=== PATIENT | male | born 1940 | race Caucasian/White ===

== ENCOUNTER 2017-03-12 22:31 | Emergency (ER) | payer OTHER ==
[2017-03-12 22:54] VITALS: BP 179/82; PULSE 99; TEMP 98.8; BMI 31.3
--- NOTE | 2017-03-12 23:24 | PDOC ---
History of Present Illness - General Chief Complaint: Urinary Problem Stated Complaint: URINARY RETENTION History Source: Patient - History of Present Illness Initial Comments: 03/12/17 23:39 Pt presents to the ED complaining of urinary retention that began at 2 pm today. Patient has a history of TURP and bladder stone removal last week--had a mayfield until two days ago. Patient had mild hematuria, but was able to pass urine without incident until 2 pm today. Presented to the ED complaining of urinary retention and abdominal pain. Past History - Past Medical History Allergies/Adverse Reactions: Allergies Allergy/AdvReac Type Severity Reaction Status Date / Time No Known Allergies Allergy Verified 11/01/11 18:38 Home Medications: Ambulatory Orders Amlodipine Besylate [Norvasc] 10 mg PO DAILY 11/01/11 Labetalol HCl [Normodyne -] 500 mg PO TID 11/01/11 Apixaban [Eliquis] 5 mg PO BID 03/12/17 Cholecalciferol (Vitamin D3) [Vitamin D3 -] 1,000 unit PO DAILY 03/12/17 Ferrous Sulfate [Slow Fe] 45 mg PO DAILY 03/12/17 Insulin Glargine,Hum.rec.anlog [Lantus Solostar PEN (NF)] 36 units SQ HS Losartan Potassium 50 mg PO DAILY 03/12/17 Potassium Chloride 10 meq PO Q2D 03/12/17 Terazosin HCl 2 mg PO HS 03/12/17 Cardiac Disorders: Yes (AFIB) Diabetes: Yes GI Disorders: Yes (IPMN, GI BLEED) Disorders: Yes (ELEVATED PSA) HTN: Yes Hypercholesterolemia: Yes Kidney Stones: Yes - Surgical History Abdominal Surgery: Yes (WHIPPLE) Cardiac Surgery: (HEART CATH) Cholecystectomy: Yes - Suicide/Smoking/Psychosocial Hx Smoking Status: No Smoking History: Never smoked Number of Cigarettes Smoked Daily: 0 *Physical Exam - Vital Signs Last Vital Signs Temp Pulse Resp BP Pulse Ox 98.8 F 99 H 20 179/82 95 03/12/17 22:35 03/12/17 22:35 03/12/17 22:35 03/12/17 22:35 03/12/17 22:35 - Physical Exam General Appearance: Yes: Nourished, Appropriately Dressed, Obese HEENT: positive: Normal ENT Inspection, Normal Voice Neck: positive: Supple Respiratory/Chest: positive: Lungs Clear, Normal Breath Sounds Cardiovascular: positive: Regular Rhythm, Regular Rate, S1, S2 Gastrointestinal/Abdominal: negative: Normal Bowel Sounds, Tender, Flat, Soft, Organomegaly, Pulsatile Mass, Increased Bowel Sounds, Decreased BS, Protuberent , Distended, Guarding, Rebound, Tenderness, Hernia, Mass, Hepatomegaly, Spleenomegaly, Other Extremity: positive: Normal Inspection Integumentary: positive: Normal Color, Dry, Warm Neurologic: positive: Fully Oriented, Alert, Normal Mood/Affect ED Treatment Course - LABORATORY CBC & Chemistry Diagram: 03/13/17 00:00 03/13/17 00:00 Medical Decision Making - Medical Decision Making 03/12/17 23:53 Pt presents to the ED complaining of urinary retention and abdominal pain. REsolved in the ED after mayfield placement. Will check labs to rule out renal injury and discharge home if negative. patient reports mild chronic renal insufficiency. 03/13/17 01:46 Labs are within normal limits. Will discharge home with leg bag and instructions to call urologist tomorrow AM for follow up. *DC/Admit/Observation/Transfer Diagnosis at time of Disposition: Retention of urine - Discharge Dispostion Disposition: HOME Condition at time of disposition: Good Admit: No - Patient Instructions Printed Discharge Instructions: DI for Urinary Retention in Men Additional Instructions: Call your urologist tomorrow for follow up. Return to the ED for fever, severe pain, if the urine stops draining in the bag.
[2017-03-13 00:55] LABS: MCH 29.6 pg (25.7-33.7); MCHC 33.7 g/dl (32.0-35.9); MEAN CELL VOLUME 87.9 fl (80-96); PLATELET COUNT 125 K/MM3 (134-434); RDW 13.4 % (11.9-15.9)
[2017-03-13 01:21] LABS: ALBUMIN 2.9 g/dl (3.4-5.0); ANION GAP 9 (8-16); BILIRUBIN,TOTAL 0.8 mg/dL (0.2-1.0); CALCIUM 7.9 mg/dL (8.5-10.1); CO2 27 mmol/L (21-32); CREATININE 1.3 mg/dL (0.7-1.3); GLUCOSE,RANDOM 178 mg/dL (74-106); SGOT/AST 27 U/L (15-37); TOT PROT 6.1 g/dl (6.4-8.2)
[2017-03-13 01:26] LABS: ALK PHOS 103 U/L (45-117); SGPT/ALT 36 U/L (12-78)
[2017-03-13 01:30] LABS: URINE APPEARANCE SLCLOUDY; URINE BILIRUBIN NEGATIVE (NEGATIVE); URINE BLOOD 3+ (NEGATIVE); URINE COLOR LTYELLOW; URINE GLUCOSE (UA) 2+ (NEGATIVE); URINE KETONE NEGATIVE (NEGATIVE); URINE NITRITE NEGATIVE (NEGATIVE); URINE UROBILINOGEN NEGATIVE mg/dL (0.2-1.0)
[2017-03-13 01:38] LABS: URINE PROTEIN 2+ (NEGATIVE)
[2017-03-13 01:42] LABS: URINE BACTERIA RARE /hpf (NONE SEEN); URINE RBC 983 /hpf (0-3)
[2017-03-13 06:40] LABS: PLATELET ESTIMATE ADEQUATE (NORMAL); TOTAL CELLS COUNTED 100
[2017-03-13 06:41] LABS: REACTIVE LYMPHOCYTES 3 % (0-80)
[2017-03-13 09:56] LABS: URINE LEUK ESTERASE Negative (NEGATIVE)
== END 2017-03-13 01:56 | disposition home or self-care (01) ==
LOC: FER 22:31
DX: R33.9 Retention of urine, unspecified (principal); I48.91 Unspecified atrial fibrillation; I10 Essential (primary) hypertension; E78.00 Pure hypercholesterolemia, unspecified; Z87.442 Personal history of urinary calculi
CPT/HCPCS: 36415; 80053; 81003; 81015; 85025; 99283-25

== ENCOUNTER 2017-03-27 02:19 | Emergency (ER) | payer OTHER ==
[2017-03-27 02:41] VITALS: BP 138/84; PULSE 77; TEMP 97.3; BMI 31.3
--- NOTE | 2017-03-27 02:55 | PDOC ---
History of Present Illness - General Chief Complaint: Blood Sugar Problem Stated Complaint: HYPOGLYCEMIA Time Seen by Provider: 03/27/17 02:46 History Source: Patient Exam Limitations: No Limitations - History of Present Illness Initial Comments: 03/27/17 02:51 This is a 77-year-old male who comes in post hypoglycemic episode. Patient said that he took his normal amount of Lantus insulin at 11 PM tonight. Patient said he took 36 units. Patient said this is his normal dosing normally takes it between 10 and 11 PM. Patient said that a 1 AM his found him passed out and called EMS. They found his sugar to be 40 gave him some dextrose and recommended that he come to the emergency room for evaluation. Her on arrival in the emergency room his sugar was 129. Immediately post the dextrose his sugar was 176. Otherwise patient denies any fevers, chills, nausea, vomiting, diarrhea, chest pain, shortness of breath or any other complaints. Patient is at his baseline mental status. Patient said that he had a procedure recently for removal of a stone from his ureter that was causing some hydronephrosis and blockage. Patient was discharged from the hospital 2 dys ago post the procedure. PAST MEDICAL HISTORY: no significant history PAST SURGICAL HISTORY: no significant history FAMILY HISTORY: no pertinant history SOCIAL HISTORY: Pt lives with family and is retired MEDICATIONS: reviewed ALLERGIES: As per nursing notes Review of Systems General: No fevers or chills, no weakness, no weight loss HEENT: No change in vision. No sore throat,. No ear pain CardioVascular: No chest pain or shortness of breath Respiratory:No cough, or wheezing. Gastrointestinal: no nausea, vomitting, diarrhea or constipation, No rectal bleeding Genitourinary: No dysuria, hematuria, or frequency Musculoskeletal: No joint or muscle pain or swelling Neurologic: No headache, vertigo, dizziness or loss of consciousness Psychiatric: nor depression Skin: No rashes or easy bruising Endocrine: no increased thirst or abnormal weight change Allergic: no skin or latex allergy All other systems reviewed and normal Exam: General: Well-nourished well-developed individual, no acute distress HEENT: Throat: Normal, tonsils normal, no erythema or exudate Neck: Supple, no meningeal signs, no lymphadenopathy Eyes::Pupils equal reactive and round, extraocular motion intact Chest: Nontender to palpation Cardiac: S1-S2 normal, regular rate and rhythm, no murmurs rubs or gallops Respiratory: Lungs clear to auscultation bilateral Abdomen: Soft, nondistended, normal bowel sounds, nontender to palpation diffusely Extremities: Warm, dry, no cyanosis, clubbing, or edema Skin: No rashes Neuro: Alert and oriented x3, nonfocal exam, grossly intact, normal gait Psych: Normal mood and affect repeat finger stick blood sugar was 176. Past History - Past Medical History Allergies/Adverse Reactions: Allergies Allergy/AdvReac Type Severity Reaction Status Date / Time No Known Allergies Allergy Verified 11/01/11 18:38 Home Medications: Ambulatory Orders Amlodipine Besylate [Norvasc] 10 mg PO DAILY 11/01/11 Labetalol HCl [Normodyne -] 500 mg PO TID 11/01/11 Apixaban [Eliquis] 5 mg PO BID 03/12/17 Cholecalciferol (Vitamin D3) [Vitamin D3 -] 1,000 unit PO DAILY 03/12/17 Ferrous Sulfate [Slow Fe] 45 mg PO DAILY 03/12/17 Insulin Glargine,Hum.rec.anlog [Lantus Solostar PEN (NF)] 36 units SQ HS Losartan Potassium 50 mg PO DAILY 03/12/17 Potassium Chloride 10 meq PO Q2D 03/12/17 Terazosin HCl 2 mg PO HS 03/12/17 Cardiac Disorders: Yes (AFIB) Diabetes: Yes GI Disorders: Yes (IPMN, GI BLEED) Disorders: Yes (ELEVATED PSA) HTN: Yes Hypercholesterolemia: Yes Kidney Stones: Yes - Surgical History Abdominal Surgery: Yes (WHIPPLE) Cardiac Surgery: (HEART CATH) Cholecystectomy: Yes - Suicide/Smoking/Psychosocial Hx Smoking Status: No Smoking History: Unknown if ever smoked Have you smoked in the past 12 months: No Number of Cigarettes Smoked Daily: 0 Information on smoking cessation initiated: No *Physical Exam - Vital Signs Last Vital Signs Temp Pulse Resp BP Pulse Ox 97.3 F L 77 16 138/84 95 03/27/17 02:20 03/27/17 02:20 03/27/17 02:20 03/27/17 02:20 03/27/17 02:20 *DC/Admit/Observation/Transfer Diagnosis at time of Disposition: Hypoglycemia - Discharge Dispostion Disposition: HOME Condition at time of disposition: Stable - Referrals Referrals: Richard Monroy [Primary Care Provider] - - Patient Instructions Printed Discharge Instructions: DI for Hypoglycemia Additional Instructions: Return to the emergency department immediately with ANY new, persistent or worsening symptoms. Continue any medications as previously prescribed by your physician. You should follow up with your primary doctor as soon as possible regarding today's emergency department visit. . Please make sure your doctor reviews the results of your emergency evaluation. Thank you for coming to the Emergency Department today for your care. It was a pleasure to see you today. Please note that your evaluation is INCOMPLETE until you follow-up with your doctor.
[2017-03-27] MEDS ORDERED: HEMOQUE TEST 1 EACH EACH ONE (03:15)
== END 2017-03-27 03:44 | disposition home or self-care (01) ==
LOC: FER 02:19
DX: E16.2 Hypoglycemia, unspecified (principal); R55 Syncope and collapse; I10 Essential (primary) hypertension; E11.9 Type 2 diabetes mellitus without complications; I48.91 Unspecified atrial fibrillation
CPT/HCPCS: 99281-25